=== PATIENT | female | born 1970 | race American Indian/Alaskan Native ===

== ENCOUNTER 2016-05-13 01:57 | Inpatient (IN) | payer MEDICAID ==
[2016-05-13 01:58] VITALS: BMI 18.1
[2016-05-13 02:53] LABS: RBC URINE 1 /hpf (0-3); URINE BACTERIA RARE (<OCC); URINE BILIRUBIN NEGATIVE (NEGATIVE); URINE BLOOD NEGATIVE (NEGATIVE); URINE COLOR STRAW (YELLOW); URINE GLUCOSE (UA) NEG (Normal); URINE KETONE NEGATIVE (NEGATIVE); URINE LEUKOCYTE ESTERASE NEG Leu/uL (Negative); URINE PROTEIN NEGATIVE (NEGATIVE); URINE UROBILINOGEN 0.2-1.0 mg/dL (0.2-1.0); WBC URINE 1 /hpf (0-5)
--- NOTE | 2016-05-13 03:20 | ED PDOC ---
HPI: Psych/Substance Abuse Time Seen by Provider: 05/13/16 02:06 Chief Complaint (Nursing): Psychiatric Evaluation Chief Complaint (Provider): depression History Per: Patient History/Exam Limitations: no limitations Onset/Duration Of Symptoms: Days (1 month) Current Symptoms Are (Timing): Still Present Severity: Mild Associated Symptoms: Depression. denies: Suicidal Thoughts, Suicidal Plan Additional Complaint(s): Patient is a 45 yo AA female with PMHx substance abuse presents to ED for depression for past 1 month. She cites her mother's as possible trigger. Patient denies H/S ideation. Past Medical History Vital Signs: Last Vital Signs Temp 98.2 F 05/13/16 02:16 Pulse 110 H 05/13/16 02:16 Resp 16 05/13/16 02:16 BP 156/110 H 05/13/16 02:16 Pulse Ox 98 05/13/16 02:16 - Medical History PMH: Anxiety, Asthma, Depression, Hyperthyroidism, Hypothyroidism, Personality Disorder Denies: Chronic Kidney Disease - Surgical History Surgical History: Denies: Carotid Endarterectomy - Family History Family History: States: Unknown Family Hx - Living Arrangements Living Arrangements: With Family - Social History Current smoker - smoking cessation education provided: Yes Ex-Smoker (has not smoked in the last 12 months): No Alcohol: Occasional Drugs: Cannabis, Cocaine - Home Medications Home Medications: Ambulatory Orders Medication Instructions Recorded Albuterol HFA [Ventolin HFA 90 1 mcg INH Q4 PRN 06/03/14 mcg/actuation (8 g)] Calcium/Vitamin D [Oyster Shell 1 tab PO TID #0 tab 06/04/14 Calcium/Vitamin D 500 mg-200 IU] Docusate [Colace] 100 mg PO DAILY #0 cap 06/04/14 - Allergies Allergies/Adverse Reactions: Allergies Allergy/AdvReac Type Severity Reaction Status Date / Time amoxicillin AdvReac DIARRHEA Verified 05/13/16 02:19 Review of Systems ROS Statement: Except As Marked, All Systems Reviewed And Found Negative Psych: Positive for: Anxiety, Depression. Negative for: Suicidal ideation Physical Exam - Reviewed Nursing Documentation Reviewed: Yes Vital Signs Reviewed: Yes - Physical Exam Appears: Positive for: Well, Non-toxic Head Exam: Positive for: ATRAUMATIC, NORMOCEPHALIC Skin: Positive for: Normal Color, Warm, Dry Eye Exam: Positive for: Normal appearance, EOMI, PERRL ENT: Positive for: Normal ENT Inspection Neck: Positive for: Normal. Negative for: Painless ROM, Supple Cardiovascular/Chest: Positive for: Regular Rate, Rhythm. Negative for: Edema, Gallop Respiratory: Positive for: Wheezing (trace exp wheezing). Negative for: Crackles Gastrointestinal/Abdominal: Positive for: Normal Exam, Bowel Sounds, Soft. Negative for: Tenderness Extremity: Positive for: Normal ROM. Negative for: Tenderness, Pedal Edema Neurologic/Psych: Positive for: Alert, Oriented, Mood/Affect (depressed). Negative for: Motor/Sensory Deficits - Laboratory Results Result Diagrams: 05/13/16 05:27 05/13/16 05:27 - ECG O2 Sat by Pulse Oximetry: 98 Medical Decision Making Medical Decision Makin yo female with depression in setting of polysubstance abuse Labs and crisis eval ordered Patient evaluated by crisis and will be admitted for further treatment and stabilization of depression Labs reviewed show no clinically significant abnormalities Chest Xray NAD Dx Depression, substance Abuse Fair Patient is medically stable for psychiatric admission Disposition - Clinical Impression Clinical Impression: Depression, Drug abuse - Patient ED Disposition Is Patient to be Admitted: Yes - Disposition Disposition Time: 04:00 Condition: FAIR - Pt Status Changed To: Hospital Disposition Of: Inpatient - Admit Certification Admit to Inpatient:: After my assessment, the patient will require hospitalization for at least two midnights. This is because of the severity of symptoms shown, intensity of services needed, and/or the medical risk in this patient being treated as an outpatient.
[2016-05-13] MEDS ORDERED: Albuterol-Ipratrop 3 mg / 0.5 (3 ml) UD INH STA (05:25)
[2016-05-13 05:35] LABS: BASO # 0.1 K/uL (0.0-0.2); BASO % 0.9 % (0.0-2.0); EOS # 0.2 K/uL (0.0-0.7); EOS % 1.4 % (0.0-4.0); HEMATOCRIT 44.9 % (34.0-47.0); LYMPH # 5.6 K/uL (1.0-4.3); LYMPH % 34.9 % (20.0-40.0); MEAN CELL VOLUME 97.1 fl (81.0-99.0); MEAN CORPUSCULAR HEMOGLOBIN 33.4 pg (27.0-31.0); MEAN CORPUSCULAR HGB CONC 34.4 g/dL (33.0-37.0); MEAN PLATELET VOLUME 8.5 fl (7.2-11.7); MONO # 1.3 K/uL (0.0-0.8); MONO % 8.1 % (0.0-10.0); NEUT # 8.8 K/uL (1.8-7.0); NEUT % 54.7 % (50.0-75.0); RED CELL DISTRIBUTION WIDTH 12.8 % (11.5-14.5)
[2016-05-13 05:39] LABS: WHITE BLOOD COUNT 16.1 K/uL (4.8-10.8)
[2016-05-13 05:47] LABS: CHLORIDE 104 mmol/L (98-107); SODIUM 144 mmol/l (132-148)
[2016-05-13 05:49] LABS: ALB/GLOB RATIO 1.3 (1.0-2.1); AST/SGOT 27 U/L (14-36); BILIRUBIN,TOTAL 0.8 mg/dl (0.2-1.3); CARBON DIOXIDE 25 mmol/L (22-30); GFR AFRICAN-AMERICAN > 60; TOTAL PROTEIN 8.7 G/DL (6.3-8.2)
[2016-05-13 05:50] LABS: ALCOHOL SERUM 21 mg/dl (0-10); ALKALINE PHOSPHATASE 57 U/L (38-126); ALT/SGPT 20 U/L (9-52); BLOOD UREA NITROGEN 8 mg/dl (7-17); CALCIUM 9.8 mg/dL (8.4-10.2); GLUCOSE,RANDOM 100 mg/dL (65-105)
[2016-05-13] MEDS ORDERED: Albuterol-Ipratrop 3 mg / 0.5 (3 ml) UD ONE (06:04)
--- NOTE | 2016-05-13 08:09 | RAD ---
HISTORY: admit COMPARISON: 06/08/2014 TECHNIQUE: Chest PA and lateral FINDINGS: LUNGS: No active pulmonary disease. PLEURA: No significant pleural effusion identified. No pneumothorax apparent. CARDIOVASCULAR: Normal. OSSEOUS STRUCTURES: No significant abnormalities. VISUALIZED UPPER ABDOMEN: Normal. OTHER FINDINGS: None. IMPRESSION: No active disease.
[2016-05-13 08:39] VITALS: O2SAT 100
[2016-05-13] MEDS ORDERED: Alum-Mag Hydrox-Simethicone Susp (30 mL) PO PRN (10:48)
[2016-05-13] MEDS ORDERED: Magnesium Hydroxide Susp 30 ml UD PO PRN (10:48)
[2016-05-13] MEDS ORDERED: DiphenhydrAMINE 50 mg/ml Inj IM PRN (10:48)
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
[2016-05-13] MEDS ORDERED: OLANZapine 5 mg Disintegrating Tab PO SCH (11:00)
[2016-05-13 11:19] LABS: BASO # 0.2 K/uL (0.0-0.2); BASO % 1.4 % (0.0-2.0); EOS # 0.3 K/uL (0.0-0.7); EOS % 2.3 % (0.0-4.0); HEMATOCRIT 42.9 % (34.0-47.0); LYMPH # 3.7 K/uL (1.0-4.3); MEAN CORPUSCULAR HEMOGLOBIN 33.2 pg (27.0-31.0); MEAN CORPUSCULAR HGB CONC 34.2 g/dL (33.0-37.0); MEAN PLATELET VOLUME 8.2 fl (7.2-11.7); MONO # 1.2 K/uL (0.0-0.8); MONO % 8.9 % (0.0-10.0); NEUT # 7.8 K/uL (1.8-7.0); NEUT % 59.4 % (50.0-75.0); NRBC % 0.1 % (0.0-0.0); RED CELL DISTRIBUTION WIDTH 12.8 % (11.5-14.5); WHITE BLOOD COUNT 13.2 K/uL (4.8-10.8)
[2016-05-13 12:01] LABS: THYROID STIMULATING HORMONE 0.07 mIU/ML (0.46-4.68)
[2016-05-13] MEDS: Multivitamin With Minerals Tab PO SCH (12:25)
[2016-05-13] MEDS: OLANZapine 5 mg Disintegrating Tab PO SCH ×2 (12:26→21:10)
--- NOTE | 2016-05-13 12:43 | PCM.PSYCH ---
Initial Psychiatric Evaluation - Initial Psychiatric Evaluation Type of Admission: Voluntary Legal Status: Capacity Chief Complaint (in patient's own words): i already talked to you! Patient's Reaction to Hospitalization: evasive History of Present Illness and Precipitating Events: 45 yo female with history of cocaine dependence, cannabis abuse and schizoaffective disorder. pt is a poor historian. she tries to avoid talking to this proposal writer because she was seen by this proposal writer during her last admission (in 2014). when pressed she reports that "my so called partner is not that...he's not there, it's just me now." she reports she has not been doing well since january when her mother . she reports at that time he stopped "being there for me." the rn reports that pt is expressing some pranoid beliefs about this person or someone else with whom the pt lives- moving objects around the home to disturb her, following her, etc. the patient reports that "something is wrong with my body.... i'm losing weight , i'm sweating, i'm just not right" she admitted in ER to using $100 cocaine daily. here she blames this on her "roomates" she admits to smoking mj daily pt reports she feels she needs to be seen more by the medical doctor. she asks for ambien, xanax, ativan at different times during the interview. she does reports she was feeling better when here on 3np, but does not remember taking olanzapine (which she took during last admission) pt turns away from this proposal writer and states she needs to sleep. Current Medications: Active Medications Generic Name Dose Route Start Last Admin Trade Name Kiki PRN Reason Stop Dose Admin Acetaminophen 650 mg 05/13/16 10:48 Tylenol 325mg Tab PO Q4 PRN Pain, moderate (4-7) Al Hydrox/Mg Hydrox/Simethicone 30 ml 05/13/16 10:48 Maalox Plus 30 Ml PO Q4 PRN Dyspepsia Diphenhydramine HCl 50 mg 05/13/16 10:48 Benadryl PO Q6 PRN Extrapyramidal Symptoms Diphenhydramine HCl 50 mg 05/13/16 10:48 Benadryl IM Q6 PRN Extrapyramidal S/S Unable PO Folic Acid 1 mg 05/13/16 11:15 05/13/16 12:24 Folic Acid PO 1 mg DAILY GREGG Administration Haloperidol 5 mg 05/13/16 10:48 Haldol PO Q4 PRN Agitation Haloperidol Lactate 5 mg 05/13/16 10:48 Haldol IM Q4 PRN Agitation, Unable to Take PO Levothyroxine Sodium 112 mcg 05/14/16 07:00 Synthroid PO DAILY GREGG Lorazepam 1 mg 05/13/16 10:48 05/13/16 12:26 Ativan PO 1 mg Q4 PRN Administration Anxiety/Agitation Lorazepam 2 mg 05/13/16 10:48 Ativan IM Q4 PRN Anxiety/Agitation,Unable PO Magnesium Hydroxide 30 ml 05/13/16 10:48 Milk Of Magnesia PO HS PRN Constipation Mirtazapine 15 mg 05/13/16 22:00 Remeron PO HS GREGG Multivitamins/Minerals 1 tab 05/13/16 11:15 05/13/16 12:25 Therapeutic-M Tab PO 1 tab DAILY GREGG Administration Nicotine 1 patch 05/13/16 11:15 Nicoderm Cq TD DAILY GREGG Olanzapine 5 mg 05/13/16 11:15 05/13/16 12:26 Zyprexa Zydis PO 5 mg [facility] GREGG Administration Thiamine HCl 100 mg 05/13/16 11:15 05/13/16 12:25 Vitamin B1 Tab PO 100 mg DAILY GREGG Administration Past Psychiatric History - Past Psychiatric History Previous Treatment History: Inpatient Prior Professional Help: did not f/u after her admission in 2014 At [facility] hospital: [facility] feb 2014 History of Abuse: abuse/trauma history- pt not discussing this topic History of ETOH/Drug Use: alcohol use- apparently daily. bal 21 in er. she has admitted to 100$cocaine use daily intranasally. reports smoking mj daily. smokes 10 cigarettes daily History of Family Illness: does not answer Pertinent Medical Hx (Current Medical&Sleep Prob, Allergies): Allergies Allergy/AdvReac Type Severity Reaction Status Date / Time amoxicillin AdvReac DIARRHEA Verified 05/13/16 02:19 RX: Levothyroxine [Synthroid] 112 mcg PO DAILY 05/13/16 graves disease, s/p thyroidectomy, sees dr. sheridan. Review of Systems - Constitutional Constitutional: Sweats, Weakness - Psychiatric Psychiatric: Anhedonia, Anxiety, Depression, Difficulty Concentrating, Hopelessness, Panic Attacks, Paranoia, Suicidal Ideation (denies- more concerned with somatic c/o) Mental Status Examination - Personal Presentation Personal Presentation: Looks older than stated age (thin, turns back to this proposal writer and pulls sheets over head) - Affect Affect: Depressed - Motor Activity Motor Activity: Calm - Reliability in Providing Information Reliability in Providing Information: Poor, due to alteration in thoughts (? paranoid thoughts), Poor, due to altered mood - Speech Speech: Other (vague) - Mood Mood: Depressed, Anxious - Formal Thought Process Formal Thought Process: Paranoia, Loosening of associations - Hallucinations/Delusions Delusions: Persecution - Obsessions/Compulsions Obsessions: No Compulsions: No - Cognitive Functions Orientation: Person, Place, Situation, Time Sensorium: Alert Attention/Concentration: Easily distracted Abstract Thinking: [place] Estimate of Intelligence: Average Judgement: Intact, as evidence by: Insight regarding need for hospitalization Memory: Recent intact, as evidence by: Ability to recall events of the day, Remote intact, as evidenced by: Abilit to recall sig. life events - Risk Risk: Suicidal (denies current suicidal thoughts), Withdrawal (alcohol use. ), Diminished functioning - Strength & Assets Inventory Strength & Assets Inventory: Family support (sister is raising pt's son, who is protective factor for pt) - Limitations Limitations: Other (? relationship with boyfriend/roomates? drug use; medical issues) DSM 5 DX - DSM 5 DSM 5 Diagnosis: schizoaffective disorder cocaine dependence alcohol abuse - Recommended/Plan of Treatment Treatment Recommendations and Plan of Treatment: admit to 3np for safety and observation gather collateral information consult family medicine/dr sheridan- history of thyroidectomy/grave's/replacement therapy restart previous medications- zyprexa and remeron as well as prn ativan for etoh withdrawal. pt is assenting to this treatment encourage participation in groups disposition planning Projected ELOS: 3-5 days Prognosis: fair Discharge Plan and Discharge Criteria: t/c referral to in addictions treatment - Smoking Cessation Smoking Cessation Initiated: Yes
[2016-05-13] MEDS ORDERED: Influenza Vaccine(5yr & older) 0.5 ML/45 MCG IM ONE (14:01)
--- NOTE | 2016-05-13 15:08 | CON ---
DATE: 05/13/2016 ROOM: 308, [facility] unit. This is a 45-year-old female with known history of Graves' disease and eventual surgical hypothyroidi sm, now admitted with major depression and concomitant polysubstance abuse and is now being referred for endocrine evaluation and management. PAST MEDICAL HISTORY: History of chronic schizoaffective disorder and schizophrenia with previous ad missions for major depression and now has been admitted for the same exacerbation of major depressive disorder and undergoing psychiatric evaluation and management. History of hypertension and dyslipid emia, history of Graves' disease with Graves' orbitopathy and also a concomitant diffuse toxic goiter and underwent a thyroid resection with eventual surgical hypothyroidism. She was seen a few weeks a go and was actually clinically and biochemically euthyroid with normal TSH values, the last one of wh ich was 1.08, currently on levothyroxine given as 112 mcg daily. FAMILY HISTORY: Positive for hypertension and diabetes. SOCIAL HISTORY: The patient has a supportive partner, who is very attentive and supportive of her nj eds. Admits to polysubstance abuse with chronic alcoholism and active usage of cocaine, heroin and m arijuana. Also admits to nicotine dependence and smokes half a pack a day for many years. REVIEW OF SYSTEMS: As mentioned above, admits to generalized body weakness with easy fatigability an d tiredness and suboptimal energy level. Also admits to dizziness and lightheadedness, worse on the day of admission. Also admits to marked insomnia and disrupted sleep patterns. No chest pains or pa lpitations, but admits to progressive shortness of breath, especially on exertion. Her oral intake i s variable and suboptimal with dyspepsia, nausea and progressive weight loss. Also admits to alterna ting constipation and diarrhea. PHYSICAL EXAMINATION: GENERAL: This is a female, in no apparent distress. VITAL SIGNS: Blood pressure of 140/80, pulse of 88 beats per minute, regular, temperature 98, respir ations 20. Height is 5 feet 4 inches, weight is 103 pounds. HEENT: Head normocephalic. Eyes anicteric with pink conjunctivae. Fundoscopy not possible at this time. Ears, nose and throat otherwise normal. NECK: Supple. Thyroid gland shows a flat thyroid bed with mild nodular thyromegaly with no overt pa lpable nodules or cysts, nor any cervical adenopathy noted. CARDIOPULMONARY: Adynamic precordium. S1, S2 is rapid and regular. LUNGS: Clear to auscultation. ABDOMEN: Flat, soft with positive bowel sounds. EXTREMITIES: No peripheral edema. Pulses are +2 bilaterally. LABORATORIES: Her hematology: WBC 16.1, hemoglobin of 15, hematocrit of 45, MCV 97, platelets 317. The chemistry showed a BUN of 8, sodium 144, potassium 4.0, chloride 104, CO2 25, glucose 100 and cr eatinine 0.9. Her TSH is reported as 0.07. ASSESSMENT: This is a 45-year-old female with known history of Graves' disease and eventual surgical resection with supervening surgical hypothyroidism and currently biochemically and clinically euthyr oid on a low dose of levothyroxine replacement therapy at 112 mcg daily as ordered. She also has rex or depression on the background of chronic schizoaffective disorder with previous admissions for lorelei r depression as noted. PLAN OF MANAGEMENT: As discussed with the patient and the staff, we will lower her levothyroxine to 100 mcg daily as would expect a transient acute sick euthyroid syndrome at this time, which will fals bahman lower the TSH levels at this time and so to avoid cardiac related complications, would keep her p rudently on the lower dosing of the levothyroxine and expect improvement over the next few weeks even tually. She is also on psychotropic medications for major depression as noted. We will obtain seria l chemistries and supplement accordingly as needed. We will also obtain serial thyroid studies and a djust her dose regimen accordingly. We will encourage high protein and high milk intake also to dete r and delay osteopenia, especially with underlying hyperthyroxinemia in the past. We will follow. Alia Romero MD cc: [id number] TT: 05/13/2016 15:07:50 Confirmation # [id number] Dictation # [id number] en
[2016-05-14] MEDS ORDERED: Levothyroxine 112 MCG TAB PO SCH (07:00)
[2016-05-14] MEDS: OLANZapine 5 mg Disintegrating Tab PO SCH ×2 (08:16→21:21)
[2016-05-14] MEDS: Multivitamin With Minerals Tab PO SCH (08:16)
[2016-05-14] MEDS: Levothyroxine 100 MCG TAB PO SCH (08:17)
--- NOTE | 2016-05-14 09:36 | CARD ---
APPROVED REPORT EKG Measurement Heart [id number] <Conclusion> Normal sinus rhythm with sinus arrhythmia Normal ECG
--- NOTE | 2016-05-14 11:03 | PCM.PYCHPN ---
Psychiatric Progress Note - Psychiatric Progress Note Patient seen today, length of contact: Patient evaluated, case discussed with team, chart reviewed, 35 Patient Chief Complaint: "I'm feeling messed up." Problems Identified/Issues Discussed: Patient reports that she continues to feel depressed, but denies suicidal ideation/plan/intent. She expressed a desire to stop using drugs/alcohol. She discussed her social stressors which include conflict with her significant other. Patient stated she is able to return to the senior care following discharge. We discussed the importance of compliance with medications/treatment /follow-ups. She denies adverse effects to the current medications. Her laboratory and medical study results were discussed with her. No AH/VH/ paranoia. DSM 5 Symptoms Update: Substance induced mood disorder, cocaine abuse, alcohol abuse, marijuana abuse Medication Change: No Medical Record Reviewed: Yes Consults ordered or reviewed: Medicine consult appreciated Mental Status Examination - Cognitive Function Orientation: Person, Place, Situation, Time Memory: Intact Attention: WNL Concentration: WNL Association: WNL Fund of Knowledge: [facility] Decription of patient's judgement and insights: Fair I/J - Mood Mood: Depressed, Anxious - Affect Affect: Depressed - Speech Speech: Appropriate - Formal Thought Process Formal Thought Process: No Impairment Psychotic Thoughts and Behaviors: Denies AH/VH/paranoia - Suicidal Ideation Suicidal Ideation: No - Homicidal Ideation Homicidal Ideation: No Goal/Treatment Plan - Goal/Treatment Plan Need for Continued Stay: Remain at risks for inpatient hospitalization, Severe depression anxiety, Discharge may exacerbated symptoms Progress Toward Problem(s) and Goals/Treatment Plan: Substance induced mood disorder, cocaine abuse, marijuana abuse, alcohol abuse. Patient needs continued inpatient admission for treatment of continued depression and anxiety. Plan: -Continue Olanzapine and Remeron; no adverse effects currently reported -Medicine consult appreciated -Psychoeducation and supportive therapy Estimated Date of D/C: 05/16/16
[2016-05-14 12:17] LABS: ALB/GLOB RATIO 1.2 (1.0-2.1); BILIRUBIN,TOTAL 0.5 mg/dl (0.2-1.3); CALCIUM 9.8 mg/dL (8.4-10.2); POTASSIUM 4.5 MMOL/L (3.6-5.0); TOTAL PROTEIN 7.8 G/DL (6.3-8.2)
[2016-05-14 12:33] LABS: T4 10.4 ug/dl (5.5-11.0)
[2016-05-14 12:47] LABS: THYROID STIMULATING HORMONE 0.23 mIU/ML (0.46-4.68)
--- NOTE | 2016-05-14 15:23 | PN ---
DATE: 05/14/2016 ROOM: 308 [facility] unit. This is a 45-year-old female with major depression and admitted here for closer evaluation and manage ment, and is also being followed closely for metabolic management. She has known history of longstan ding hyperthyroidism and underwent a surgical resection with subsequent surgical hypothyroidism and i s currently on levothyroxine replacement therapy. Her latest chemistry showed a BUN of 16, sodium 138, potassium 4.5, chloride 102, CO2 29, glucose 89 and creatinine 1. . Her latest thyroid studies showed a T4 of 0.4 mcg/dL with a TSH of 0.23. So at this time, we will continue the modified and lower dosing regimen for levothyroxine 100 mcg aarti ly before breakfast as ordered. We will obtain serial chemistries and supplement accordingly as need ed. We will follow. Alia Romero MD cc: [id number] TT: 05/14/2016 15:22:58 Confirmation # [id number] Dictation # [id number] en
[2016-05-15] MEDS: OLANZapine 5 mg Disintegrating Tab PO SCH ×2 (08:17→21:08)
[2016-05-15] MEDS: Levothyroxine 100 MCG TAB PO SCH (08:18)
[2016-05-15] MEDS: Multivitamin With Minerals Tab PO SCH (08:18)
--- NOTE | 2016-05-15 11:27 | PCM.PYCHPN ---
Psychiatric Progress Note - Psychiatric Progress Note Patient seen today, length of contact: Patient evaluated, case discussed with team, chart reviewed, 35 Patient Chief Complaint: "I don't know why I'm so depressed" Problems Identified/Issues Discussed: Patient reports that she continues to feel depressed in the context of chronic substance abuse, the of her mother (in August 2015) and conflict with her boyfriend, but denies suicidal ideation/plan/intent. Motivational interviewing done. We discussed substance abuse cessation and treatment options. She was able to acknowledge that chronic cocaine and alcohol abuse likely cause of worsen her depression. We discussed the importance of compliance with medications/treatment/follow-ups. She denies adverse effects to the current medications. No AH/VH/paranoia. Medication Change: No Medical Record Reviewed: Yes Mental Status Examination - Cognitive Function Orientation: Person, Place, Situation, Time Memory: Intact Attention: WNL Concentration: WNL Association: WNL Fund of Knowledge: [facility] Decription of patient's judgement and insights: Fair I/J - Mood Mood: Depressed, Anxious - Affect Affect: Depressed - Speech Speech: Appropriate - Formal Thought Process Formal Thought Process: No Impairment Psychotic Thoughts and Behaviors: NO AH/VH/paranoia - Suicidal Ideation Suicidal Ideation: No - Homicidal Ideation Homicidal Ideation: No Goal/Treatment Plan - Goal/Treatment Plan Need for Continued Stay: Remain at risks for inpatient hospitalization, Severe depression anxiety, Discharge may exacerbated symptoms Progress Toward Problem(s) and Goals/Treatment Plan: Substance induced mood disorder, cocaine abuse, marijuana abuse, alcohol abuse. Patient needs continued inpatient admission for treatment of continued depression and anxiety. Plan: -Continue Olanzapine and Remeron; no adverse effects currently reported -Medicine consult appreciated -Psychoeducation and supportive therapy/motivational interviewing -Likely discharge to home on Estimated Date of D/C: 05/17/16
--- NOTE | 2016-05-15 19:52 | PN ---
DATE: 05/15/2016 ROOM 308 This is a 45-year-old female with recent major depressive disorder and concomitant polysubstance abus e, and currently undergoing closer psychiatric evaluation and management, and is also being followed closely for metabolic management. She had previous surgical neck resection with subsequent surgical hypothyroidism, and has been on levothyroxine replacement therapy for some years now, and her prior t hyroid studies done in the past month showed that she was clinically and biochemically euthyroid on l evothyroxine given as 112 mcg daily. The repeat thyroid studies here in the hospital showed a total T4 of 10.4 mcg/dL, with a free T4 of 1.94, and a TSH of 0.23, which was initially 0.07. The most likely etiology would be the so-called acute sick euthyroid syndrome, especially in the ligh t of an acute psychotic breakthrough as noted. So at this time, we have actually lowered the levothy roxine down to 100 mcg daily to allow for dose equilibration, and will titrate accordingly as indicat ed to optimize metabolic control. Serial thyroid studies to be undertaken, and will adjust her dose regimen accordingly. Will follow. Alia Romero MD cc: [phone] TT: 05/15/2016 19:51:27 Confirmation # [id number] Dictation # [id number] jordan
--- NOTE | 2016-05-16 07:18 | CP.PCM.PN ---
Subjective - Date & Time of Evaluation Date of Evaluation: 05/16/16 Time of Evaluation: 07:18 - Subjective Subjective: 45 year old female with PMHx of hypothyroidism (s/p subpartial thyroidectomy), HTN, Sacroidosis NOS, polysubtance abuse was seen at bedside resting comfortably. Patient admits to decreased appetite yesterday, but states she is hungry this morning. Patient states that her last BM was yesterday and normal. She denies any n/v/f/c/sob/cp. Objective - Vital Signs/Intake and Output Vital Signs (last 24 hours): Temp Pulse Resp BP Pulse Ox 97.9 F 58 L 18 121/76 100 05/16/16 06:00 05/16/16 06:00 05/16/16 06:00 05/16/16 06:00 05/13/16 08:38 - Medications Medications: Current Medications Acetaminophen (Tylenol 325mg Tab) 650 mg PO Q4 PRN PRN Reason: Pain, moderate (4-7) Al Hydrox/Mg Hydrox/Simethicone (Maalox Plus 30 Ml) 30 ml PO Q4 PRN PRN Reason: Dyspepsia Diphenhydramine HCl (Benadryl) 50 mg PO Q6 PRN PRN Reason: Extrapyramidal Symptoms Diphenhydramine HCl (Benadryl) 50 mg IM Q6 PRN PRN Reason: Extrapyramidal S/S Unable PO Folic Acid (Folic Acid) 1 mg PO DAILY [facility] Last Admin: 05/15/16 08:18 Dose: 1 mg Haloperidol (Haldol) 5 mg PO Q4 PRN PRN Reason: Agitation Haloperidol Lactate (Haldol) 5 mg IM Q4 PRN PRN Reason: Agitation, Unable to Take PO Levothyroxine Sodium (Synthroid) 100 mcg PO ACB [facility] Last Admin: 05/15/16 08:18 Dose: 100 mcg Lorazepam (Ativan) 1 mg PO Q4 PRN PRN Reason: Anxiety/Agitation Last Admin: 05/13/16 12:26 Dose: 1 mg Lorazepam (Ativan) 2 mg IM Q4 PRN PRN Reason: Anxiety/Agitation,Unable PO Magnesium Hydroxide (Milk Of Magnesia) 30 ml PO HS PRN PRN Reason: Constipation Mirtazapine (Remeron) 15 mg PO HS [facility] Last Admin: 05/15/16 21:08 Dose: 15 mg Multivitamins/Minerals (Therapeutic-M Tab) 1 tab PO DAILY [facility] Last Admin: 05/15/16 08:18 Dose: 1 tab Nicotine (Nicoderm Cq) 1 patch TD DAILY [facility] Last Admin: 05/15/16 08:18 Dose: 1 patch Olanzapine (Zyprexa Zydis) 5 mg PO [facility] Last Admin: 05/15/16 21:08 Dose: 5 mg Thiamine HCl (Vitamin B1 Tab) 100 mg PO DAILY [facility] Last Admin: 05/15/16 08:18 Dose: 100 mg - Labs Labs: 05/13/16 11:10 05/14/16 11:50 - Constitutional Appears: Well, Non-toxic, No Acute Distress - Head Exam Head Exam: NORMAL INSPECTION - Eye Exam Eye Exam: Normal appearance - Neck Exam Neck Exam: Full ROM - Respiratory Exam Respiratory Exam: NORMAL BREATHING PATTERN. absent: Rales, Rhonchi, Wheezes - Cardiovascular Exam Cardiovascular Exam: REGULAR RHYTHM, +S1, +S2 - GI/Abdominal Exam GI & Abdominal Exam: Soft, Normal Bowel Sounds. absent: Tenderness - Extremities Exam Extremities Exam: Normal Capillary Refill, Normal Inspection. absent: Tenderness - Back Exam Back Exam: NORMAL INSPECTION - Neurological Exam Neurological Exam: Alert, Awake, Oriented x3 - Psychiatric Exam Psychiatric exam: Normal Affect, Normal Mood - Skin Skin Exam: Dry, Normal Color, Warm Assessment and Plan - Assessment and Plan (Free Text) Assessment: 45 year old female with PMHx of hypothyroidism (s/p subpartial thyroidectomy), HTN, Sacroidosis NOS, polysubtance abuse admitted for evaluation and management of depression. Plan: 1. Depressed mood -continue treatment per pysch 2. Hypothyroidism -Continue Levothyroxine 100 mcg PO daily -TSH 0.23, Free T4 1.94, Thyroxine 10.4 on 05/13/16 3. Leukocytosis -No signs or symptoms of acute bacterial infection -Afebrile; No left shift -UA and CXR reviewed- WNL 4. HTN -continue to monitor
[2016-05-16] MEDS: Levothyroxine 100 MCG TAB PO SCH (08:18)
[2016-05-16] MEDS: Multivitamin With Minerals Tab PO SCH ×2 (08:19→08:24)
[2016-05-16] MEDS: OLANZapine 5 mg Disintegrating Tab PO SCH ×2 (08:19→21:02)
--- NOTE | 2016-05-16 11:00 | PCM.PYCHPN ---
Psychiatric Progress Note - Psychiatric Progress Note Patient seen today, length of contact: Patient evaluated, case discussed with team, chart reviewed, 35 Patient Chief Complaint: "I'm feeling better" Problems Identified/Issues Discussed: Patient reports that her mood is improving. She believe individual therapy and medications are helping her. She expressed a desire to continue to follow-up as an outpatient. She reports that she had some constipation yesterday, but was able to have a bowel movement today. NO AH/VH/paranoia/SI/HI. She has no other acute medical complaints. She is compliant with treatment and engages in groups appropriately. Medication Change: No Medical Record Reviewed: Yes Mental Status Examination - Cognitive Function Orientation: Person, Place, Situation, Time Memory: Intact Attention: WNL Concentration: WNL Association: WNL Fund of Knowledge: WN Decription of patient's judgement and insights: Fair I/J - Mood Mood: Depressed - Affect Affect: Broad - Speech Speech: Appropriate - Formal Thought Process Formal Thought Process: No Impairment Psychotic Thoughts and Behaviors: NO AH/VH/paranoia - Suicidal Ideation Suicidal Ideation: No - Homicidal Ideation Homicidal Ideation: No Goal/Treatment Plan - Goal/Treatment Plan Need for Continued Stay: Severe depression anxiety Progress Toward Problem(s) and Goals/Treatment Plan: Substance induced mood disorder, cocaine abuse, marijuana abuse, alcohol abuse. Patient's symptoms of anxiety and depression are improving with therapy and medications. She will likely be discharged to home tomorrow with continued outpatient follow-up. Plan: -Continue Olanzapine and Remeron; no adverse effects currently reported -Medicine consult appreciated -Psychoeducation and supportive therapy/motivational interviewing -Discharge tomorrow Estimated Date of D/C: 05/17/16
--- NOTE | 2016-05-16 16:27 | PN ---
DATE: 05/16/2016 ROOM: 308 This is a 45-year-old female with polysubstance abuse and admitted here with major depression and is now being followed closely for metabolic management. Her latest chemistry showed a BUN of 16, sodium 138, potassium 4.5, chloride 102, CO2 of 29, glucose 89, and creatinine 1.2. Her latest thyroid moreno dy showed a T4 of 10.4 with a TSH of 0.23 and a free T4 of 1.94, indicative of the so-called acute si ck euthyroid syndrome. So, at this time, we will continue the modified and lower dosing of the levothyroxine given as 100 mc g daily as ordered. We will repeat serial thyroid studies and adjust her dose regimen accordingly. We will follow. Alia Romero MD cc: [phone] TT: 05/16/2016 16:26:36 Confirmation # [id number] Dictation # [id number] sn
[2016-05-17 06:14] VITALS: BP 128/73; PULSE 76; RESP 18; TEMP 97.7
[2016-05-17] MEDS: Levothyroxine 100 MCG TAB PO SCH (08:16)
[2016-05-17] MEDS: Multivitamin With Minerals Tab PO SCH ×2 (08:16→08:19)
[2016-05-17] MEDS: OLANZapine 5 mg Disintegrating Tab PO SCH (08:17)
--- NOTE | 2016-05-17 09:43 | PCM.PYCHDC ---
Mental Status Examination - Mental Status Examination Orientation: Person, Place, Situation, Time Memory: Intact Mood: Neutral Affect: Broad Speech: Appropriate Attention: WNL Concentration: WNL Association: WNL Fund of Knowledge: WNL Formal Thought Process: No Impairment Description of patient's judgement and insight: Fair I/J Psychotic Thoughts and Behaviors: NO AH/VH/paranoia Suicidal Ideation: No Current Homicidal Ideation?: No Discharge Summary - Discharge Note Reason for Hospitalization: As per initial HPI: 45 yo female with history of cocaine dependence, cannabis abuse and schizoaffective disorder. pt is a poor historian. she tries to avoid talking to this brief writer because she was seen by this brief writer during her last admission (in 2014). when pressed she reports that "my so called partner is not that...he's not there, it's just me now." she reports she has not been doing well since january when her mother . she reports at that time he stopped "being there for me." the rn reports that pt is expressing some pranoid beliefs about this person or someone else with whom the pt lives- moving objects around the home to disturb her, following her, etc. the patient reports that "something is wrong with my body.... i'm losing weight , i'm sweating, i'm just not right" she admitted in ER to using $100 cocaine daily. here she blames this on her "roomates" she admits to smoking mj daily pt reports she feels she needs to be seen more by the medical doctor. she asks for ambien, xanax, ativan at different times during the interview. she does reports she was feeling better when here on 3np, but does not remember taking olanzapine (which she took during last admission) pt turns away from this brief writer and states she needs to sleep. Consultations:: List each consultation separately and include: 1. Reason for request. 2. Findings. 3. Follow-up Consultations: Medicine consult Summary of Hospital Course include:: 1. Description of specific treatment plan utilized for patients during their course of treatmen. 2. Summarize the time- course for resolution of acute symptoms and/or regressed behaviors. 3. Describe issues identified and worked on during hospitalization. 4. Describe medication utilized. 5. Describe medical problems identified and treated. 6. Reassessment of suicide risk Summary of Hospital Course: Patient admitted to the psychiatry unit. She was started on Olanzapine 5 mg PO Q12 and Remeron 15 mg PO HS. She reports improved depressive symptoms and does not report any current psychotic symptoms. She was counseled on the importance of compliance with medications/follow-up treatment and cessation of alcohol/ cocaine/other substances of abuse. - Final Diagnosis (DSM 5) Condition upon Discharge: FAIR DSM 5: Cocaine abuse, alcohol abuse, substance induced mood disorder Disposition: HOME/ ROUTINE Follow-up Treatment Plan: Substance induced mood disorder, cocaine abuse, marijuana abuse, alcohol abuse. Patient's symptoms of anxiety and depression have improved and she will be discharged to home with outpatient follow-up. Plan: -Continue Olanzapine 5 mg PO Q 12 and Remeron 15 mg PO HS; no adverse effects currently reported -Medicine consult appreciated, continue Levothyroxine 100 mcg Daily -Psychoeducation and supportive therapy/motivational interviewing -Discharge with outpatient followup (see SW note) Patient evaluated, counseled on the dangers of substance abuse, case discussed with team, prescriptions prepared, d/c >35 min Prescriptions/Medication Reconciliation: Folic Acid 1 mg PO DAILY #30 tab Nicotine 14 mg/24 hr [Nicoderm CQ] 1 patch TD DAILY #30 patch Mirtazapine [Remeron] 15 mg PO HS #30 tab Levothyroxine [Synthroid] 100 mcg PO ACB #30 tab Thiamine [Vitamin B1 Tab] 100 mg PO DAILY #30 tab Olanzapine [Zyprexa] 5 mg PO Q12 #60 tablet - Smoking Cessation Smoking Cessation Medication prescribed: Yes - Antipsychotic Medications Pt discharged on 2 or more routine antipsychotic medications: No
--- NOTE | 2016-05-17 16:31 | PN ---
DATE: 05/17/2016 ROOM: 308 This is a 45-year-old female with major depression and concomitant polysubstance abuse and is now christopher ng followed closely for metabolic management. She also has remained clinically and biochemically eut hyroid, although on admission had a suppressed TSH, which is most likely was related to the so-called acute sick euthyroid syndrome. Her latest chemistry showed a BUN of 16, sodium 138, potassium 4.5, chloride 102, CO2 29, glucose 89, and creatinine 1.2. Her latest thyroid study showed a T4 of 10.4 w ith a TSH of 0.23. So at this time, we will continue the modified dosing of levothyroxine given as 1 00 mcg daily as ordered. We will titrate incrementally as indicated to optimize metabolic control. We will follow. Alia Romero MD cc: [phone] TT: 05/17/2016 16:30:21 Confirmation # [id number] Dictation # [id number] an
== END 2016-05-17 11:35 | disposition home or self-care (01) | DRG 747 ==
LOC: H.ER 01:57 → H.ERHOLD 05:00 → H.STEP 08:51
PROVIDERS: ADMIT Psychiatry & Neurology Psychiatry; ATTEND Psychiatry & Neurology Psychiatry
PROC: GZHZZZZ Group Psychotherapy (ICD-10-PCS; principal; 2016-05-13)
PROC: 3E0234Z Introduction of Serum, Toxoid and Vaccine into Muscle, Percutaneous Approach (ICD-10-PCS; 2016-05-14)
DX: F19.14 Other psychoactive substance abuse with psychoactive substance-induced mood disorder (principal); D86.9 Sarcoidosis, unspecified; F14.10 Cocaine abuse, uncomplicated; I10 Essential (primary) hypertension; E89.0 Postprocedural hypothyroidism; F10.10 Alcohol abuse, uncomplicated; Y90.1 Blood alcohol level of 20-39 mg/100 ml; F12.10 Cannabis abuse, uncomplicated; E07.81 Sick-euthyroid syndrome; F17.210 Nicotine dependence, cigarettes, uncomplicated; J45.909 Unspecified asthma, uncomplicated; D72.829 Elevated white blood cell count, unspecified; Z88.0 Allergy status to penicillin; Z23 Encounter for immunization